=== PATIENT | male | born 1945 | race Caucasian/White ===

== ENCOUNTER 2018-04-30 12:20 | Emergency (ER) | payer OTHER, BC ==
[~2018-04-30] VITALS: Ht 167.6 cm; Wt 89.4 kg
[2018-04-30 13:41] LABS: HEMATOCRIT 45.6 % (38.0-50.0); HEMOGLOBIN 15.7 G/DL (12.5-16.6); MCH 32.2 PG (29.0-34.0); MCHC 34.4 G/DL (30.0-36.0); MCV 93.6 FL (86-99); PLATELET COUNT 96 K/uL (156-360); RBC DIS.WIDTH-CV 12.5 % (11.8-14.6); RBC DIS.WIDTH-SD 42.9 % (39-53); RED BLOOD COUNT 4.87 M/uL (4.00-5.50); WHITE BLOOD COUNT 5.6 K/uL (4.1-10.2)
[2018-04-30 13:52] LABS: ALBUMIN 4.3 g/dL (3.2-4.8); CHLORIDE 111 mEq/L (99-109); POTASSIUM 4.9 mEq/L (3.7-5.4); SODIUM 142 mEq/L (136-147)
[2018-04-30 13:54] LABS: GLUCOSE 111 mg/dL (70-99); TOTAL PROTEIN 6.9 g/dL (6.4-8.3)
[2018-04-30 13:58] LABS: ALKALINE PHOSPHATASE 56 IU/L (3-129); GFR ESTIMATE (CALCULATED) > 59 mL/min/ (58.99-99999)
[2018-04-30 13:59] LABS: UREA NITROGEN (BUN) 21 mg/dL (9-23)
[2018-04-30 14:00] LABS: AST (GOT) 20 IU/L (2-34)
[2018-04-30 14:01] LABS: ALT (GPT) 19 IU/L (3-49)
[2018-04-30 15:25] VITALS: BP 161/87
== END 2018-04-30 15:26 | disposition home or self-care (01) ==
LOC: EME 12:20
PROVIDERS: Nurse Practitioner Family
DX: S09.90XA Unspecified injury of head, initial encounter (principal); M25.511 Pain in right shoulder; M25.562 Pain in left knee; S00.11XA Contusion of right eyelid and periocular area, initial encounter; S81.012A Laceration without foreign body, left knee, initial encounter; W10.1XXA Fall (on)(from) sidewalk curb, initial encounter
CPT/HCPCS: 70450; 73030; 73060; 73564; 80053; 85027; 99281; 99284